=== PATIENT | female | born 1970 | race Caucasian/White ===

== ENCOUNTER 2022-04-10 05:33 | Day surgery (SDC) | payer BC ==
[2022-04-10] MEDS ORDERED: Acetaminophen 500 MG Tab PO ONE (06:15)
[2022-04-10] MEDS ORDERED: Dextrose 5%-Lactated Ringers 1,000 ML IV SCH (06:30)
[2022-04-10] MEDS ORDERED: Bupivacaine 0.5% 30 ML SDV ONE (06:46)
[2022-04-10] MEDS ORDERED: Lidocaine 1% with EPINEPHrine 1:100,000 50 ML MDV ONE (06:46)
[2022-04-10] MEDS ORDERED: Meropenem 500 MG in Sodium Chloride 0.9% 50 ML IV ONE (07:15)
[2022-04-10] MEDS ORDERED: Midazolam 1 MG/ML 2 ML SDV ONE (07:24)
[2022-04-10] MEDS ORDERED: fentaNYL 100 MCG/2 ML SDV ONE (07:24)
[2022-04-10] MEDS ORDERED: Propofol 200 MG/20 ML SDV ONE (07:24)
[2022-04-10] MEDS ORDERED: Linezolid 600 MG/300 ML Premix Bag IRR ONE (07:36)
[2022-04-10 09:34] VITALS: BP 112/64; PULSE 64
== END 2022-04-10 09:25 | disposition home or self-care (01) ==
LOC: JP.SDS 05:33
PROVIDERS: ATTEND Surgery
DX: L90.5 Scar conditions and fibrosis of skin (principal); I96 Gangrene, not elsewhere classified; L72.0 Epidermal cyst; I10 Essential (primary) hypertension; F17.210 Nicotine dependence, cigarettes, uncomplicated; E03.9 Hypothyroidism, unspecified; R73.03 Prediabetes; E66.9 Obesity, unspecified; Z68.36 Body mass index [BMI] 36.0-36.9, adult; Z88.8 Allergy status to other drugs, medicaments and biological substances; Z79.899 Other long term (current) drug therapy
CPT/HCPCS: 11404; 12032; 87070; 87075; 87205; 88304; A9270; J2020; J2185; J2250; J2704; J3010; J3490; J7121

== ENCOUNTER 2023-07-21 06:45 | Day surgery (SDC) | payer BC ==
[2023-07-21] MEDS ORDERED: Propofol 200 MG/20 ML SDV ONE (06:59)
[2023-07-21] MEDS ORDERED: Midazolam 1 MG/ML 2 ML SDV ONE (07:00)
[2023-07-21] MEDS ORDERED: fentaNYL 50 MCG/ML SDV ONE (07:00)
[2023-07-21] MEDS: Lactated Ringers 1,000 ML IV SCH (07:40)
[2023-07-21 08:52] VITALS: PULSE 61
[2023-07-21 09:30] VITALS: BP 129/78
== END 2023-07-21 09:45 | disposition home or self-care (01) ==
LOC: JP.SDS 06:45
PROVIDERS: ATTEND Family Medicine
DX: Z12.11 Encounter for screening for malignant neoplasm of colon (principal); D12.2 Benign neoplasm of ascending colon; D12.8 Benign neoplasm of rectum; I10 Essential (primary) hypertension; E03.9 Hypothyroidism, unspecified; R73.03 Prediabetes; F17.200 Nicotine dependence, unspecified, uncomplicated; Z88.8 Allergy status to other drugs, medicaments and biological substances
CPT/HCPCS: 45380; 88305; J2250; J2704; J3010; J7120

== ENCOUNTER 2023-09-22 06:34 | Day surgery (SDC) | payer BC ==
[2023-09-22] MEDS ORDERED: fentaNYL 50 MCG/ML SDV ONE (06:49)
[2023-09-22] MEDS ORDERED: Propofol 200 MG/20 ML SDV ONE ×2 (06:49→08:05)
[2023-09-22] MEDS: Sodium Chloride 0.9% 1,000 ML IV SCH (07:25)
[2023-09-22 11:24] VITALS: BP 135/92; PULSE 64
[2023-09-22] MEDS ORDERED: Iopamidol 612 MG/ML 50 ML SDV PO ONE (11:25)
[2023-09-22] MEDS: Iopamidol 612 MG/ML 100 ML Bottle IV SCH (12:02)
[2023-09-22] MEDS: Sodium Chloride 0.9% 80 ML IV SCH (12:02)
[2023-09-22] MEDS: Sodium Chloride 0.9% 10 ML Syringe FLUSH ONE (12:02)
== END 2023-09-22 11:15 | disposition home or self-care (01) ==
LOC: JP.SDS 06:34
PROVIDERS: ATTEND Surgery
DX: K20.90 Esophagitis, unspecified without bleeding (principal); K22.89 Other specified disease of esophagus; K80.20 Calculus of gallbladder without cholecystitis without obstruction; K21.9 Gastro-esophageal reflux disease without esophagitis; F41.9 Anxiety disorder, unspecified; F32.A Depression, unspecified; I10 Essential (primary) hypertension; E03.9 Hypothyroidism, unspecified; Z79.899 Other long term (current) drug therapy; Z88.8 Allergy status to other drugs, medicaments and biological substances
CPT/HCPCS: 43239; 74177; 88305; J2704; J3010; J3490; J7030; Q9967

== ENCOUNTER 2023-09-23 18:16 | Emergency (ER) | payer BC ==
[2023-09-23 19:01] LABS: BASOPHILS ABSOLUTE AUTO 0.07 K/uL (0.00-0.10); BASOPHILS PERCENT AUTO 0.9 % (0.1-1.3); EOSINOPHILS ABSOLUTE AUTO 0.14 K/uL (0.00-0.40); EOSINOPHILS PERCENT AUTO 1.8 % (0.0-5.4); HEMATOCRIT 39.4 % (34.3-46.0); IMMATURE GRAN ABSOLUTE AUTO 0.03 K/uL (0.00-0.23); IMMATURE GRAN PERCENT AUTO 0.4 % (0.0-0.7); LYMPHOCYTES ABSOLUTE AUTO 2.96 K/uL (0.8-3.3); LYMPHOCYTES PERCENT AUTO 37.2 % (11.4-47.7); MEAN CORPUSCULAR HEMOGLOBIN 29.9 pg (31.6-35.5); MEAN CORPUSCULAR HGB CONC 35.5 g/dL (31.6-35.5); MONOCYTES ABSOLUTE AUTO 0.67 K/uL (0.20-0.90); MONOCYTES PERCENT AUTO 8.4 % (3.3-12.6); NEUTROPHILS ABSOLUTE AUTO 4.08 K/uL (1.0-7.6); NEUTROPHILS PERCENT AUTO 51.3 % (40.0-78.1); PLATELET COUNT,PLT 300 K/uL (130-375); RED BLOOD CELL COUNT 4.69 M/uL (3.77-5.24)
[2023-09-23 19:03] VITALS: BP 153/109; PULSE 73
[2023-09-23 19:26] LABS: CALCIUM 9.5 mg/dL (8.5-10.1); CREATININE 0.6 mg/dL (0.6-1.0); EST CRCL DRUG DOSING (CG) 109.38 mL/min; POTASSIUM,K 3.7 mmol/L (3.6-5.2); TROPONIN I HIGH SENSITIVITY 4.4 pg/mL (<=60.3)
[2023-09-23 19:29] LABS: ANION GAP 11.7 mmol/L (5.0-14.0)
== END 2023-09-23 19:53 | disposition home or self-care (01) ==
LOC: JP.ED 18:16
DX: R07.89 Other chest pain (principal); I10 Essential (primary) hypertension; Z90.49 Acquired absence of other specified parts of digestive tract; Z79.899 Other long term (current) drug therapy; Z88.8 Allergy status to other drugs, medicaments and biological substances
CPT/HCPCS: 36415; 71045; 71045-26; 80048; 84484; 85025; 93005; 93010; 99285

== ENCOUNTER 2024-01-27 07:59 | Day surgery (SDC) | payer BC ==
[2024-01-27] MEDS: Bupivacaine 0.5%/EPINEPHrine 1:200,000 50 ML MDV ONE (08:32)
[2024-01-27 08:40] LABS: BASOPHILS ABSOLUTE AUTO 0.06 K/uL (0.00-0.10); BASOPHILS PERCENT AUTO 1.1 % (0.1-1.3); EOSINOPHILS ABSOLUTE AUTO 0.08 K/uL (0.00-0.40); EOSINOPHILS PERCENT AUTO 1.5 % (0.0-5.4); HEMATOCRIT 41.9 % (34.3-46.0); HEMOGLOBIN 14.6 g/dL (11.2-15.5); IMMATURE GRAN PERCENT AUTO 0.2 % (0.0-0.7); LYMPHOCYTES ABSOLUTE AUTO 1.95 K/uL (0.8-3.3); LYMPHOCYTES PERCENT AUTO 35.9 % (11.4-47.7); MEAN CORPUSCULAR HEMOGLOBIN 30.1 pg (31.6-35.5); MEAN CORPUSCULAR HGB CONC 34.8 g/dL (31.6-35.5); MEAN CORPUSCULAR VOLUME 86.4 fL (81.4-99.0); MONOCYTES ABSOLUTE AUTO 0.47 K/uL (0.20-0.90); MONOCYTES PERCENT AUTO 8.7 % (3.3-12.6); NEUTROPHILS ABSOLUTE AUTO 2.86 K/uL (1.0-7.6); NEUTROPHILS PERCENT AUTO 52.6 % (40.0-78.1); PLATELET COUNT,PLT 323 K/uL (130-375); RED BLOOD CELL COUNT 4.85 M/uL (3.77-5.24); WHITE BLOOD CELL COUNT,WBC 5.4 K/uL (3.2-11.0)
[2024-01-27] MEDS: Indocyanine Green 25 MG SDV IV ONE (08:47)
[2024-01-27] MEDS: Lactated Ringers 1,000 ML IV SCH (08:47)
[2024-01-27 08:49] LABS: IMMATURE GRAN ABSOLUTE AUTO 0.01 K/uL (0.00-0.23)
[2024-01-27] MEDS ORDERED: Glycopyrrolate 0.2 MG/ML 5 ML MDV ONE (08:55)
[2024-01-27] MEDS ORDERED: Dexamethasone 4 MG/ML SDV ONE (08:55)
[2024-01-27] MEDS ORDERED: Neostigmine Methylsulfate 10 MG/10 ML MDV ONE (08:55)
[2024-01-27] MEDS ORDERED: fentaNYL 250 MCG/5 ML SDV ONE (08:55)
[2024-01-27] MEDS ORDERED: Rocuronium 50 MG/5 ML Vial ONE (08:55)
[2024-01-27] MEDS ORDERED: Propofol 200 MG/20 ML SDV ONE (08:55)
[2024-01-27] MEDS ORDERED: Ondansetron 4 MG/2 ML SDV ONE (08:55)
[2024-01-27 09:01] LABS: A/G RATIO 1.1 (1.2-2.2); ALANINE AMINOTRANSFERASE,ALT 31 U/L (12-78); ALBUMIN 3.5 g/dL (3.4-5.0); ALKALINE PHOSPHATASE 88 U/L (46-116); ANION GAP 8.3 mmol/L (5.0-14.0); ASPARTATE AMNIOTRANSFERASE,AST 35 U/L (15-37); BILIRUBIN TOTAL 0.8 mg/dL (0.2-1.0); BLOOD UREA NITROGEN,BUN 13 mg/dL (7-18); CALCIUM 8.8 mg/dL (8.5-10.1); CARBON DIOXIDE,CO2 27 mmol/L (21-32); CHLORIDE,CL 107 mmol/L (100-108); CREATININE 0.7 mg/dL (0.6-1.0); ESTIMATED GFR 103 mL/min (>60); GLUCOSE RANDOM 108 mg/dL (74-106); PROTEIN TOTAL,TP 6.6 g/dL (6.4-8.2); SODIUM,NA 142 mmol/L (140-148)
[2024-01-27] MEDS: ceFAZolin 2 GM in Premix Bag 1 BAG IV ONE (09:24)
[2024-01-27] MEDS: metroNIDAZOLE/Normal Saline 500 MG in Premix Bag 1 BAG IV ONE (09:25)
[2024-01-27] MEDS ORDERED: Labetalol 20 MG/4 ML Syringe ONE (09:49)
[2024-01-27] MEDS ORDERED: Ketorolac 30 MG/ML SDV ONE (09:51)
[2024-01-27] MEDS: Ropivacaine 50 ML, dexAMETHasone 8 MG, EPINEPHrine 0.4 MG, Sodium Chloride 0.9% 27.6 ML NERVRT SCH (09:51)
[2024-01-27] MEDS ORDERED: fentaNYL 100 MCG/2 ML SDV ONE (10:00)
[2024-01-27] MEDS: hydrOXYzine HCL 100 MG/2 ML SDV IM ONE (10:55)
[2024-01-27] MEDS: Ondansetron 4 MG/2 ML SDV IVPUSH ONE (10:56)
[2024-01-27] MEDS: Scopalamine 1mg/3day Transdermal Patch TOP SCH (11:05)
[2024-01-27] MEDS ORDERED: Acetaminophen/HYDROcodone 325-5 MG Tab PO PRN (11:44)
[2024-01-27] MEDS ORDERED: Naloxone 0.4 MG/ML SDV IVPUSH PRN (11:45)
[2024-01-27] MEDS: HYDROmorphone 1 MG/ML Syringe IVPUSH ONE (11:49)
[2024-01-27 15:02] VITALS: BP 149/87; PULSE 74
[2024-01-30] MEDS ORDERED: Scopalamine 1mg/3day Transdermal Patch TRDERM PRN (09:00)
== END 2024-01-27 14:50 | disposition home or self-care (01) ==
LOC: JP.SDS 07:59
PROVIDERS: ATTEND Surgery
DX: K80.10 Calculus of gallbladder with chronic cholecystitis without obstruction (principal); I10 Essential (primary) hypertension; F41.9 Anxiety disorder, unspecified; F32.A Depression, unspecified; E03.9 Hypothyroidism, unspecified; K21.9 Gastro-esophageal reflux disease without esophagitis; Z87.891 Personal history of nicotine dependence; Z79.899 Other long term (current) drug therapy
CPT/HCPCS: 00790-QZ; 36415; 80053; 85025; 88304; A9270-GY; J0171; J0690; J1100; J1171; J1596; J1836; J1885; J1920; J2405; J2704; J2710; J2795; J3010; J3410; J3490; J7120

== ENCOUNTER 2024-09-19 23:32 | Emergency (ER) | payer BC ==
[2024-09-20 00:26] LABS: BASOPHILS ABSOLUTE AUTO 0.05 K/uL (0.00-0.10); BASOPHILS PERCENT AUTO 0.7 % (0.1-1.3); EOSINOPHILS ABSOLUTE AUTO 0.15 K/uL (0.00-0.40); HEMATOCRIT 41.8 % (34.3-46.0); HEMOGLOBIN 14.2 g/dL (11.2-15.5); IMMATURE GRAN PERCENT AUTO 0.1 % (0.0-0.7); LYMPHOCYTES ABSOLUTE AUTO 3.29 K/uL (0.8-3.3); LYMPHOCYTES PERCENT AUTO 44.1 % (11.4-47.7); MEAN CORPUSCULAR HEMOGLOBIN 30.2 pg (31.6-35.5); MEAN CORPUSCULAR VOLUME 88.9 fL (81.4-99.0); NEUTROPHILS ABSOLUTE AUTO 3.36 K/uL (1.0-7.6); NEUTROPHILS PERCENT AUTO 45.1 % (40.0-78.1); PLATELET COUNT,PLT 292 K/uL (130-375); WHITE BLOOD CELL COUNT,WBC 7.5 K/uL (3.2-11.0)
[2024-09-20] MEDS: Alum Hydrox/Mag Hydrox/Simeth 15 ML, Lidocaine 2% 15 ML PO ONE (00:27)
[2024-09-20 00:29] LABS: IMMATURE GRAN ABSOLUTE AUTO 0.01 K/uL (0.00-0.23)
[2024-09-20 00:53] LABS: A/G RATIO 1.2 (1.2-2.2); ALANINE AMINOTRANSFERASE,ALT 38 U/L (12-78); ALBUMIN 3.6 g/dL (3.4-5.0); ALKALINE PHOSPHATASE 98 U/L (46-116); ASPARTATE AMNIOTRANSFERASE,AST 16 U/L (15-37); BILIRUBIN TOTAL 0.6 mg/dL (0.2-1.0); BLOOD UREA NITROGEN,BUN 12 mg/dL (7-18); CALCIUM 8.9 mg/dL (8.5-10.1); CARBON DIOXIDE,CO2 28 mmol/L (21-32); CHLORIDE,CL 107 mmol/L (100-108); CREATININE 0.6 mg/dL (0.6-1.0); EST CRCL DRUG DOSING (CG) 108.13 mL/min; ESTIMATED GFR 107 mL/min (>60); GLUCOSE RANDOM 104 mg/dL (74-106); POTASSIUM,K 3.5 mmol/L (3.6-5.2); PROTEIN TOTAL,TP 6.5 g/dL (6.4-8.2); SODIUM,NA 143 mmol/L (140-148)
[2024-09-20 01:00] LABS: ANION GAP 11.5 mmol/L (5.0-14.0); C-REACTIVE PROTEIN < 0.50 mg/dL (<0.50)
[2024-09-20] MEDS: Sodium Chloride 0.9% 100 ML IV SCH (01:59)
[2024-09-20] MEDS: Iopamidol 612 MG/ML 100 ML Bottle IV SCH (01:59)
[2024-09-20] MEDS: Sodium Chloride 0.9% 10 ML Syringe FLUSH PRN (01:59)
[2024-09-20] MEDS: Ketorolac 30 MG/ML SDV IVPUSH ONE (02:35)
[2024-09-20] MEDS: Pantoprazole 40 MG Vial IVPUSH ONE (02:53)
[2024-09-20 03:33] VITALS: BP 155/86; PULSE 58
== END 2024-09-20 03:00 | disposition home or self-care (01) ==
LOC: JP.ED 23:32
DX: R07.89 Other chest pain (principal); I10 Essential (primary) hypertension; Z91.048 Other nonmedicinal substance allergy status; Z88.8 Allergy status to other drugs, medicaments and biological substances; Z79.899 Other long term (current) drug therapy; Z86.16 Personal history of COVID-19
CPT/HCPCS: 36415; 71260; 74177; 80053; 83690; 85025; 86140; 93005; 96374; 96375; 99285; A9270; J1885; J2470; Q9967

== ENCOUNTER 2024-09-23 00:22 | Observation (INO) | payer BC ==
[2024-09-23] MEDS: Morphine 4 MG/ML Syringe IVPUSH ONE ×2 (01:07→02:45)
[2024-09-23] MEDS: Ondansetron 4 MG/2 ML SDV IVPUSH ONE (01:07)
[2024-09-23 01:09] LABS: BASOPHILS ABSOLUTE AUTO 0.08 K/uL (0.00-0.10); BASOPHILS PERCENT AUTO 0.7 % (0.1-1.3); EOSINOPHILS ABSOLUTE AUTO 0.13 K/uL (0.00-0.40); EOSINOPHILS PERCENT AUTO 1.1 % (0.0-5.4); HEMATOCRIT 45.5 % (34.3-46.0); HEMOGLOBIN 15.2 g/dL (11.2-15.5); IMMATURE GRAN ABSOLUTE AUTO 0.03 K/uL (0.00-0.23); IMMATURE GRAN PERCENT AUTO 0.3 % (0.0-0.7); LYMPHOCYTES ABSOLUTE AUTO 3.39 K/uL (0.8-3.3); LYMPHOCYTES PERCENT AUTO 28.8 % (11.4-47.7); MEAN CORPUSCULAR HEMOGLOBIN 29.8 pg (31.6-35.5); MEAN CORPUSCULAR HGB CONC 33.4 g/dL (31.6-35.5); MEAN CORPUSCULAR VOLUME 89.2 fL (81.4-99.0); MONOCYTES ABSOLUTE AUTO 0.81 K/uL (0.20-0.90); MONOCYTES PERCENT AUTO 6.9 % (3.3-12.6); NEUTROPHILS ABSOLUTE AUTO 7.32 K/uL (1.0-7.6); NEUTROPHILS PERCENT AUTO 62.2 % (40.0-78.1); PLATELET COUNT,PLT 322 K/uL (130-375); WHITE BLOOD CELL COUNT,WBC 11.8 K/uL (3.2-11.0)
[2024-09-23 01:37] LABS: A/G RATIO 1.2 (1.2-2.2); ALANINE AMINOTRANSFERASE,ALT 41 U/L (12-78); ALBUMIN 3.8 g/dL (3.4-5.0); ALKALINE PHOSPHATASE 117 U/L (46-116); ANION GAP 11.9 mmol/L (5.0-14.0); ASPARTATE AMNIOTRANSFERASE,AST 17 U/L (15-37); BILIRUBIN TOTAL 0.5 mg/dL (0.2-1.0); BLOOD UREA NITROGEN,BUN 11 mg/dL (7-18); CALCIUM 9.4 mg/dL (8.5-10.1); CARBON DIOXIDE,CO2 26 mmol/L (21-32); CHLORIDE,CL 106 mmol/L (100-108); CREATININE 0.7 mg/dL (0.6-1.0); EST CRCL DRUG DOSING (CG) 92.68 mL/min; ESTIMATED GFR 103 mL/min (>60); GLUCOSE RANDOM 112 mg/dL (74-106); POTASSIUM,K 3.8 mmol/L (3.6-5.2); SODIUM,NA 144 mmol/L (140-148)
[2024-09-23] MEDS ORDERED: Naloxone 0.4 MG/ML SDV IVPUSH PRN (03:53)
[2024-09-23] MEDS: Morphine 4 MG/ML Syringe IVPUSH PRN (04:13)
[2024-09-23] MEDS ORDERED: Sodium Chloride 0.9% 10 ML Syringe IV PRN (07:10)
[2024-09-23] MEDS: Ondansetron 4 MG/2 ML SDV IVPUSH PRN (07:51)
[2024-09-23] MEDS: Sodium Chloride 0.9% 1,000 ML IV SCH (08:33)
[2024-09-23] MEDS ORDERED: fentaNYL 50 MCG/ML SDV ONE (09:37)
[2024-09-23] MEDS ORDERED: Propofol 200 MG/20 ML SDV ONE (09:37)
[2024-09-23] MEDS: valACYclovir 500 MG Tab PO SCH (14:44)
[2024-09-23 15:48] VITALS: BP 148/71; PULSE 84
== END 2024-09-23 16:09 | disposition home or self-care (01) ==
LOC: JP.ED 00:22 → JP.MS 03:23
PROVIDERS: ADMIT Family Medicine; ATTEND Hospitalist
DX: K20.90 Esophagitis, unspecified without bleeding (principal); K22.89 Other specified disease of esophagus; Z98.890 Other specified postprocedural states; Z79.899 Other long term (current) drug therapy
CPT/HCPCS: 00731; 36415; 43239; 74018; 80053; 83690; 84484; 85025; 93005; 93010; 96374; 96375; 96376; 99239; 99285; A9270; G0378; J2270; J2405; J2704; J3010; J7030; 88305